=== PATIENT | female | born 1960 | race Caucasian/White ===

== ENCOUNTER 2018-02-22 17:30 | Inpatient (IN) | payer OTHER ==
[2018-02-22] MEDS ORDERED: ACETAMINOPHEN 500 MG TAB PO ONE (17:44)
[2018-02-22] MEDS ORDERED: NS 1,500 ML IV ONE (18:31)
[2018-02-22 18:35] LABS: PLATELET COUNT 208 10^3/uL (150-400)
[2018-02-22] MEDS ORDERED: ceFAZolin 2 GM/DEXTROSE 100 ML IV ONE (18:45)
--- NOTE | 2018-02-22 18:55 | EDPHY ---
H & P Stated Complaint: L nipple swelling redness Time Seen by Provider: 02/22/18 18:02 HPI/ROS: CHIEF COMPLAINT: Left breast infection HISTORY OF PRESENT ILLNESS: 57-year-old female presents with a left breast infection. She had a mastectomy in October 2017 and had an implant placed at that time. In November 2017 she had nipple reconstruction. The nipple became necrotic in the postop period and she has followed up her surgeon. However over the last 10 days, she has developed erythema over the left breast, associated with increasing moderate pain and purulent drainage. Today she developed a fever and feels ill. REVIEW OF SYSTEMS: complete 10 point ROS reviewed and is negative except for the noted elements in the HPI Source: Patient - Personal History Current Tetanus/Diphtheria Vaccine: Unsure Current Tetanus Diphtheria and Acellular Pertussis (TDAP): Unsure - Medical/Surgical History Hx Asthma: No Hx Chronic Respiratory Disease: No Hx Diabetes: No Hx Cardiac Disease: No Hx Renal Disease: No Hx Cirrhosis: No Hx Alcoholism: No Hx HIV/AIDS: No Hx Splenectomy or Spleen Trauma: No Other PMH: breast CA 2004, tonsilectomy, breast reconstruction - Social History Smoking Status: Current some day smoker Alcohol Use: Sober Drug Use: None - Physical Exam Exam: General Appearance: Alert, pleasant, nontoxic-appearing Eyes: Pupils equal and round, no conjunctival pallor or injection ENT, Mouth: Mucous membranes moist Neck: Normal inspection Respiratory: Lungs are clear to auscultation Breast: Diffuse erythema, swelling and tenderness of the left breast, the erythema extends to the right anterior chest wall, necrosis of the nipple, with purulent drainage between the nipple and the remainder of the breast Cardiovascular: Regular tachycardia Gastrointestinal: Abdomen is soft and nontender Neurological: A&O, nonfocal exam Skin: Warm and dry Extremities: Normal inspection, no swelling Psychiatric: Mood and affect normal Constitutional: Initial Vital Signs Temperature (C) 39.2 C H 02/22/18 17:36 Heart Rate 123 H 02/22/18 17:36 Respiratory Rate 16 02/22/18 17:36 Blood Pressure 156/97 H 02/22/18 17:36 O2 Sat (%) 92 02/22/18 17:36 O2 Delivery Mode Room Air Allergies/Adverse Reactions: amoxicillin Allergy (Verified 02/22/18 17:35) Penicillins Allergy (Verified 02/22/18 17:35) Home Medications: Medication Instructions Recorded Aspirin [Aspirin 81mg (*)] 81 mg PO DAILY 02/22/18 Cholecalciferol Vit D3 [Vitamin D3 1,000 units PO DAILY 02/22/18 (*)] Herbals/Supplements -Info Only 1 ea PO DAILY 02/22/18 Letrozole [Femara 2.5 mg (*)] 2.5 mg PO DAILY 02/22/18 Vancomycin [Vancomycin (*)] 1,250 mg IV DAILY vial 02/25/18 levOFLOXACIN [levAQUIN (*)] 750 mg PO HS #10 tab 02/25/18 Medical Decision Making ED Course/Re-evaluation: This pt presents with left breast mastitis/abscess and infection of the implant. She meets SIRS criteria, initial lactate 2.8. c/w severe sepsis. IVF per sepsis protocol initiated. Wound cx obtained. Ancef 2gm IV given after blood cultures obtained. Dr. Gilberto Michael was consulted and saw the pt in the ED. Repeat lactate obtained and is 2.2. The hospitalist service was consulted for admission. The pt was taken directly to the OR by Dr. Michael. BP adequate throughout ED stay. This pt utilized 35 minutes of critical care time exclusive of unbundled procedures. Time spent in serial assessments of pt, ordering/review of labs, medication ordering, discussions with consultants. Differential Diagnosis: includes though not limited to other causes of infection such as pneumonia, cellulitis, pyelo, intraabd infection - Data Points Laboratory Results: Laboratory Results 02/22/18 18:23 02/22/18 18:23 Medications Given: Discontinued Medications Acetaminophen (Tylenol) 1,000 mg PO EDNOW ONE Stop: 02/22/18 17:45 Last Admin: 02/22/18 17:47 Dose: 1,000 mg Acetaminophen (Tylenol) 650 mg PO Q6HRS PRN PRN Reason: Pain, Mild/Fever, Can Take PO Stop: 08/22/18 06:28 Last Admin: 02/23/18 18:23 Dose: 650 mg Bacitracin (Bacitracin Syringe) Confirm Administered Dose 100,000 units IRR .STK -MED ONE Stop: 02/22/18 19:40 Last Admin: 02/22/18 21:12 Dose: Not Given Bupivacaine HCl (Sensorcaine 0.5% Vial) Confirm Administered Dose 30 ml .ROUTE .STK-MED ONE Stop: 02/22/18 20:46 Last Admin: 02/22/18 21:12 Dose: 30 ml Cholecalciferol (Vitamin D) 1,000 units PO DAILY SALO Stop: 08/22/18 08:59 Last Admin: 02/25/18 08:13 Dose: 1,000 units Sodium Chloride (Ns) 1,500 mls @ 3,000 mls/hr 30 ml/kg infuse over 30 min ( 1500 ml) IV EDNOW ONE PRN Reason: Protocol Stop: 02/22/18 19:00 Last Admin: 02/22/18 18:45 Dose: 1,500 mls Cefazolin Sodium/Dextrose (Ancef) 100 mls @ 200 mls/hr IV EDNOW ONE PRN Reason: Protocol Stop: 02/22/18 19:14 Last Admin: 02/22/18 18:50 Dose: 100 mls Lactated Ringer's (Lr) 1,000 mls @ 0 mls/hr IV ONCE ONE PRN Reason: KVO Stop: 02/22/18 19:54 Last Admin: 02/22/18 20:27 Dose: 1,000 mls Cefazolin Sodium/Dextrose (Ancef) 100 mls @ 200 mls/hr IV Q8HRS SALO PRN Reason: Protocol Stop: 03/25/18 05:59 Last Admin: 02/23/18 04:57 Dose: 100 mls Sodium Chloride (Ns) 500 mls @ 0 mls/hr IV ONCE ONE PRN Reason: Wide Open Stop: 02/23/18 07:01 Last Admin: 02/23/18 07:02 Dose: 500 mls Cefepime HCl 2 gm/ Sodium (Chloride) 100 mls @ 200 mls/hr IV Q8H SALO PRN Reason: Protocol Stop: 03/25/18 10:29 Last Admin: 02/25/18 10:28 Dose: 100 mls Vancomycin HCl 750 mg/ (Dextrose) 165 mls @ 165 mls/hr IV Q12H SALO PRN Reason: Protocol Stop: 03/25/18 10:29 Last Admin: 02/25/18 11:20 Dose: 165 mls Sodium Chloride (Ns) 1,000 mls @ 3,000 mls/hr IV ONCE ONE Stop: 02/23/18 10:49 Last Admin: 02/23/18 10:39 Dose: 1,000 mls Letrozole (Femara) 2.5 mg PO DAILY [facility] Stop: 08/22/18 08:59 Last Admin: 02/25/18 08:13 Dose: 2.5 mg Midazolam HCl (Versed) 2 mg IVP ONCALL ONE Stop: 02/22/18 20:15 Last Admin: 02/22/18 20:26 Dose: 2 mg Oxycodone HCl (Oxycodone Ir) 5 - 10 mg PO Q4HRS PRN PRN Reason: PACU, Pain Severe Stop: 02/22/18 21:17 Last Admin: 02/22/18 21:27 Dose: 5 mg Oxycodone HCl (Oxycodone Ir) 5 - 10 mg PO Q4HRS PRN PRN Reason: Pain, Severe Able to Take PO Stop: 03/04/18 21:09 Last Admin: 02/25/18 08:12 Dose: 5 mg Polymyxin B Sulfate (Polymyxin B Syringe) Confirm Administered Dose 1,000,000 unit IRR .STK-MED ONE Stop: 02/22/18 19:40 Last Admin: 02/22/18 21:12 Dose: Not Given Potassium Chloride (Klor-Con) 40 meq PO ONCE ONE Stop: 02/24/18 10:14 Last Admin: 02/24/18 10:49 Dose: 40 meq Senna/Docusate Sodium (Senokot-S) 1 - 2 tab PO BID SALO PRN Reason: Protocol Stop: 08/24/18 11:29 Last Admin: 02/25/18 12:16 Dose: 2 tab Vancomycin HCl (Vancomycin Hcl) Confirm Administered Dose 1 gm .ROUTE .STK-MED ONE Stop: 02/22/18 19:40 Last Admin: 02/22/18 21:13 Dose: Not Given Departure - Departure Disposition: [facility] Acute Clinical Impression: Infection of breast implant Qualifiers: Encounter type: initial encounter Qualified Code(s): T85.79XA - Infection and inflammatory reaction due to other internal prosthetic devices, implants and grafts, initial encounter Condition: Serious
--- NOTE | 2018-02-22 19:31 | PDGENHP ---
History and Physical - Chief Complaint L breast infection - History of Present Illness Otherwise health 57yo F from [place] presents with acute onset L breast pain and drainage. Briefly, patient is s/p mastectomy c radiation and recon for L breast cancer. Most treatment took place in spring. Has had nipple healing issues since the operation and has had revision x1. Is in town visiting family and noticed that the chest wall has been somewhat erythematous for about the last week or so. Initially blamed this on heating pads she was using to augment blood flow. Today, hasnt felt well all day and has noticed drainage from the area which prompted her presentation here. She denies fevers at home, but endorses chills. Pain is located over the majority of the L breast is 7/10 in intensity and nonradiating and is described as burning. History Information - Allergies/Home Medication List Allergies/Adverse Reactions: amoxicillin Allergy (Verified 02/22/18 17:35) Penicillins Allergy (Verified 02/22/18 17:35) Home Medications: Aspirin [Aspirin 81mg (*)] 81 mg PO DAILY 02/22/18 [Last Taken Unknown] Cholecalciferol Vit D3 [Vitamin D3 (*)] 1,000 units PO DAILY 02/22/18 [Last Taken Unknown] Herbals/Supplements -Info Only 1 ea PO DAILY 02/22/18 [Last Taken Unknown] Letrozole [Femara 2.5 mg (*)] 2.5 mg PO DAILY 02/22/18 [Last Taken 02/22/18] I have personally reviewed and updated: family history, medical history, social history, surgical history Past Medical History: breast cancer - Surgical History Additional surgical history: L mastectomy, tissue expanders and implant c nipple revision - Family History Positive for: non-pertinent - Social History Smoking Status: Current some day smoker Alcohol Use: Sober Drug Use: None Additional social history: in town from [place] visiting family Review of Systems Review of Systems: ROS: 10pt was reviewed & negative except for what was stated in HPI & below Physical Exam Physical Exam: Temp Pulse Resp BP Pulse Ox 98.8 C H 97 18 134/81 H 97 02/22/18 18:44 02/22/18 19:15 02/22/18 19:15 02/22/18 19:15 02/22/18 19:15 Constitutional: appears nourished, not in pain, uncomfortable Eyes: PERRL, anicteric sclera, EOMI Ears, Nose, Mouth, Throat: moist mucous membranes, hearing normal, ears appear normal, no oral mucosal ulcers Cardiovascular: regular rate and rhythym, no murmur, rub, or gallop, No edema Respiratory: no respiratory distress, no rales or rhonchi, clear to auscultation Gastrointestinal: normoactive bowel sounds, soft, non-tender abdomen, no palpable masses Genitourinary: no bladder fullness, no bladder tenderness Skin: other (L breast: central portion adjacent to nipple is open and tracks likely to implant. Nipple is necrotic. Breast is indurated, erythematous and very tender. ), No mottled Musculoskeletal: full muscle strength, no muscle tenderness, normal joint ROM, no joint effusions Neurologic: AAOx3, sensation intact bilaterally, No weakness, No numbness Psychiatric: interacting appropriately, not anxious, not encephalopathic, thought process linear Lymph, Heme, Immunologic: no cervical LAD, no supraclavicular LAD Lab Data & Imaging Review 02/22/18 18:23 02/22/18 18: WBC 6.80 10^3/uL (3.80-9.50) 02/22/18 18: RBC 3.39 10^6/uL (4.18-5.33) L 02/22/18 18: Hgb 11.9 g/dL (12.6-16.3) L 02/22/18 18: Hct 33.3 % (38.0-47.0) L 02/22/18 18: MCV 98.2 fL (81.5-99.8) 02/22/18 18: MCH 35.1 pg (27.9-34.1) H 02/22/18 18: MCHC 35.7 g/dL (32.4-36.7) 02/22/18 18: RDW 13.0 % (11.5-15.2) 02/22/18 18: Plt Count 208 10^3/uL (150-400) 02/22/18 18: MPV 9.3 fL (8.7-11.7) 02/22/18 18: Neut % (Auto) 75.7 % (39.3-74.2) H 02/22/18 18:23 Lymph % (Auto) 12.2 % (15.0-45.0) L 02/22/18 18:23 [place] % (Auto) 11.5 % (4.5-13.0) 02/22/18 18:23 Eos % (Auto) 0.0 % (0.6-7.6) L 02/22/18 18:23 Baso % (Auto) 0.3 % (0.3-1.7) 02/22/18 18: Nucleat RBC Rel Count 0.0 % (0.0-0.2) 02/22/18 18: Absolute Neuts (auto) 5.15 10^3/uL (1.70-6.50) 02/22/18 18: Absolute Lymphs (auto) 0.83 10^3/uL (1.00-3.00) L 02/22/18 18: Absolute Monos (auto) 0.78 10^3/uL (0.30-0.80) 02/22/18 18: Absolute Eos (auto) 0.00 10^3/uL (0.03-0.40) L 02/22/18 18:23 Absolute Basos (auto) 0.02 10^3/uL (0.02-0.10) 02/22/18 18: Absolute Nucleated RBC 0.00 10^3/uL (0-0.01) 02/22/18 18: Immature Gran % 0.3 % (0.0-1.1) 02/22/18 18: Immature Gran # 0.02 10^3/uL (0.00-0.10) 02/22/18 18:23 VBG Lactic Acid 2.8 mmol/L (0.7-2.1) H 02/22/18 18:20 Sodium 133 mEq/L (135-145) L 02/22/18 18:23 Potassium 3.7 mEq/L (3.5-5.2) 02/22/18 18:23 Chloride 100 mEq/L (97-110) 02/22/18 18:23 Carbon Dioxide 21 mEq/l (22-31) L 02/22/18 18: Anion Gap 12 mEq/L (6-14) 02/22/18 18:23 BUN 7 mg/dL (7-23) 02/22/18 18:23 Creatinine 0.6 mg/dL (0.6-1.0) 02/22/18 18:23 Estimated GFR > 60 02/22/18 18:23 Glucose 104 mg/dL (70-100) H 02/22/18 18:23 Calcium 8.9 mg/dL (8.5-10.4) 02/22/18 18:23 Chest X-Ray results: no infiltrate Assessment & Plan Assessment: 57yo F c L breast infection c implant Plan: discussed with the patient that the treatment for this is source control. This includes removal of the implant. - plan for OR for washout and explant of silicone implant - BS abx - will ultimately need revision, will likely have this done in [place] once source is washed.
[2018-02-22] MEDS ORDERED: POLYMYXIN B SULFATE 500,000 UNIT/10 ML SYR IRR ONE (19:39)
[2018-02-22] MEDS ORDERED: VANCOMYCIN 1 GM VIAL ONE (19:39)
[2018-02-22] MEDS ORDERED: BACITRACIN 50,000 UNITS/10 ML SYR IRR ONE (19:39)
[2018-02-22] MEDS ORDERED: LR 1,000 ML IV ONE (19:53)
--- NOTE | 2018-02-22 19:56 | PDGENHP ---
History and Physical History and Physical: Chief complaint: [] History of present illness: [] Past medical history: [] Past surgical history: [] Medications: [] Allergies: [] Social history: [] Family history: [] Review of systems: 10 point review of systems was conducted and is negative except per HPI Physical exam: Vitals: Reviewed Labs: [] Other Data: [] Impression and plan: []
[2018-02-22] MEDS ORDERED: MIDAZOLAM 2 MG/2 ML VIAL IVP ONE (20:14)
[2018-02-22] MEDS ORDERED: PROMETHAZINE HCL 25 MG/ML INJ IVP PRN (20:16)
[2018-02-22] MEDS ORDERED: DEXAMETHASONE 4 MG/ML VIAL IVP PRN (20:16)
[2018-02-22] MEDS ORDERED: oxyCODONE IR 5 MG TAB PO PRN (20:16)
[2018-02-22] MEDS ORDERED: ACETAMINOPHEN 500 MG TAB PO PRN (20:16)
[2018-02-22] MEDS ORDERED: NALOXONE HCL 0.4 MG/ML INJ IVP PRN (20:16)
[2018-02-22] MEDS ORDERED: ONDANSETRON 4 MG/2 ML VIAL IVP PRN (20:16)
[2018-02-22] MEDS ORDERED: fentaNYL 100 MCG/2 ML INJ IVP PRN (20:16)
[2018-02-22] MEDS ORDERED: LR 500 ML IV PRN (20:16)
--- NOTE | 2018-02-22 20:16 | PDANEPAE ---
ANE Past Medical History - Pulmonary History Hx Oxygen in Use at Home: No - Endocrine History Hx Diabetes: No Obesity: no Endocrine History Comment: Graves disease 30 years ago--"it burned itself out". ANE Review of Systems Review of Systems: ANE Patient History - Allergies Allergies/Adverse Reactions: amoxicillin Allergy (Verified 02/22/18 17:35) Penicillins Allergy (Verified 02/22/18 17:35) - Home Medications Home Medications: Aspirin [Aspirin 81mg (*)] 81 mg PO DAILY 02/22/18 [Last Taken Unknown] Cholecalciferol Vit D3 [Vitamin D3 (*)] 1,000 units PO DAILY 02/22/18 [Last Taken Unknown] Herbals/Supplements -Info Only 1 ea PO DAILY 02/22/18 [Last Taken Unknown] Letrozole [Femara 2.5 mg (*)] 2.5 mg PO DAILY 02/22/18 [Last Taken 02/22/18] - NPO status NPO Since - Liquids (Date): 02/22/18 NPO Since - Liquids (Time): 18:35 NPO Since - Solids (Date): 02/22/18 NPO Since - Solids (Time): 11:30 - Anes Hx Anes Hx: no prior problems - Smoking Hx Smoking Status: Current some day smoker - Alcohol Use Alcohol Use: Sober ANE Labs/Vital Signs - Labs Result Diagrams: 02/22/18 18:23 02/22/18 18:23 - Vital Signs Blood Pressure: 119/84 Heart Rate: 91 Respiratory Rate: 18 O2 Sat (%): 95 Height: 162.56 cm Weight: 50.349 kg ANE Physical Exam - Airway Neck exam: FROM Mallampati Score: Class 2 Mouth exam: normal dental/mouth exam - Pulmonary Pulmonary: no respiratory distress, no rales or rhonchi, clear to auscultation - Cardiovascular Cardiovascular: regular rate and rhythym, no murmur, rub, or gallop - ASA Status ASA Status: II ANE Anesthesia Plan Anesthesia Plan: GA w LMA
[2018-02-22] MEDS ORDERED: ONDANSETRON 4 MG/2 ML VIAL ONE (20:18)
[2018-02-22] MEDS ORDERED: fentaNYL 100 MCG/2 ML INJ ONE (20:18)
[2018-02-22] MEDS ORDERED: PROPOFOL 200 MG/20 ML VIAL ONE (20:18)
[2018-02-22] MEDS ORDERED: MIDAZOLAM 2 MG/2 ML VIAL ONE (20:19)
[2018-02-22] MEDS ORDERED: BUPIVACAINE 0.5% 30 ML SDV ONE (20:45)
[2018-02-22] MEDS ORDERED: HYDROmorphONE/DILAUDID 1 MG/ML INJ IVP PRN (21:10)
--- NOTE | 2018-02-22 21:10 | POSTOPPROG ---
Post Op Note Date of Operation: 02/22/18 Surgeon: Gilberto Michael Anesthesiologist: Krysta Anesthesia: GET(General Endotracheal) Pre-op Diagnosis: L breast abscess Post-op Diagnosis: same Procedure: L breast I&D c implant removal and washout Findings: purulent, foul smelling fluid. Implant clearly exposed Inf/Abcess present in the surg proc area at time of surgery?: Yes Depth: Deep Incisional (Fascial) EBL: Minimal Total fluids administered: 3L NS washout Specimen(s): cultures implant to path
--- NOTE | 2018-02-22 21:11 | POSTANESTH ---
Post Anesthetic Evaluation Cardiovascular Status: Similar to Pre-Op Cond (A little tachycardic (105), likely due to dehydration and fever.) Respiratory Status: Normal, Stable, Similar to Pre-op Cond. Level of Consciousness/Mental Status: Can Participate in Eval, Mildly Sleepy, Arousable Pain Control: Adequate, Prn Tx Ordered Nausea/Vomiting Control: Adequate, Prn Tx Ordered Complications Possibly Related to Anesthesia: None Noted
[2018-02-22] MEDS ORDERED: oxyCODONE IR 5 MG TAB ONE (21:26)
[2018-02-23] MEDS: oxyCODONE IR 5 MG TAB PO PRN (00:03)
--- NOTE | 2018-02-23 00:48 | PDGENHP ---
History and Physical - Chief Complaint L breast redness, swelling - History of Present Illness 57 yo F w/ hx of breast CA presents with L breast redness and swelling. She underwent L mastectomy and reconstruction in October of 2017 for breast CA. Her recovery from this has been complicated. The nipple became necrotic and never fully healed. Over the last few days she has noticed redness over the L breast associated with increasing pain and purulent drainage. On the day of admission she developed fevers so she came in for evaluation. In the ED she was noted to be febrile and tachycardic with an elevated lactate. She was taken to the OR by surgery for an I&D with findings consistent with infection per the brief post-operative note. I evaluated patient in the post-op setting and she is doing quite well. Her pain is well controlled with oxycodone and she denies other symptoms at this time. Case discussed with Dr. Lazo; records reviewed and summarized above. History Information - Allergies/Home Medication List Allergies/Adverse Reactions: amoxicillin Allergy (Verified 02/22/18 17:35) Penicillins Allergy (Verified 02/22/18 17:35) Home Medications: Aspirin [Aspirin 81mg (*)] 81 mg PO DAILY 02/22/18 [Last Taken Unknown] Cholecalciferol Vit D3 [Vitamin D3 (*)] 1,000 units PO DAILY 02/22/18 [Last Taken Unknown] Herbals/Supplements -Info Only 1 ea PO DAILY 02/22/18 [Last Taken Unknown] Letrozole [Femara 2.5 mg (*)] 2.5 mg PO DAILY 02/22/18 [Last Taken 02/22/18] I have personally reviewed and updated: family history, medical history Past Medical History: breast cancer - Past Medical History cancer - Surgical History Additional surgical history: L mastectomy, tissue expanders and implant c nipple revision - Family History Positive for: non-pertinent - Social History Smoking Status: Current some day smoker Alcohol Use: Sober Drug Use: None Additional social history: in town from [place] visiting family Review of Systems Review of Systems: ROS: 10pt was reviewed & negative except for what was stated in HPI & below Physical Exam Physical Exam: Temp Pulse Resp BP Pulse Ox 37.0 C 98 16 132/79 H 95 02/23/18 00:00 02/23/18 00:00 02/23/18 00:00 02/23/18 00:00 02/23/18 00:00 O2 (L/minute) 1 Constitutional: no apparent distress, uncomfortable Eyes: PERRL, EOMI Ears, Nose, Mouth, Throat: moist mucous membranes, no oral mucosal ulcers Cardiovascular: regular rate and rhythym, systolic murmur Respiratory: no respiratory distress, clear to auscultation Gastrointestinal: normoactive bowel sounds, soft, non-tender abdomen Skin: warm, other (L breast bandage c/d/i) Musculoskeletal: full muscle strength, no muscle tenderness Neurologic: AAOx3, CN II-XII Intact Psychiatric: interacting appropriately, not anxious Lab Data & Imaging Review 02/22/18 18:23 02/22/18 18: WBC 6.80 10^3/uL (3.80-9.50) 02/22/18 18: RBC 3.39 10^6/uL (4.18-5.33) L 02/22/18 18: Hgb 11.9 g/dL (12.6-16.3) L 02/22/18: Hct 33.3 % (38.0-47.0) L 02/22/18 18: MCV 98.2 fL (81.5-99.8) 02/22/18 18: MCH 35.1 pg (27.9-34.1) H 02/22/18: MCHC 35.7 g/dL (32.4-36.7) 02/22/18 18: RDW 13.0 % (11.5-15.2) 02/22/18: Plt Count 208 10^3/uL (150-400) 02/22/18 18: MPV 9.3 fL (8.7-11.7) 02/22/18 18: Neut % (Auto) 75.7 % (39.3-74.2) H 02/22/18: Lymph % (Auto) 12.2 % (15.0-45.0) L 02/22/18 18: [place] % (Auto) 11.5 % (4.5-13.0) 02/22/18 18: Eos % (Auto) 0.0 % (0.6-7.6) L 02/22/18 18:23 Baso % (Auto) 0.3 % (0.3-1.7) 02/22/18 18:23 Nucleat RBC Rel Count 0.0 % (0.0-0.2) 02/22/18 18: Absolute Neuts (auto) 5.15 10^3/uL (1.70-6.50) 02/22/18 18: Absolute Lymphs (auto) 0.83 10^3/uL (1.00-3.00) L 02/22/18 18: Absolute Monos (auto) 0.78 10^3/uL (0.30-0.80) 02/22/18 18: Absolute Eos (auto) 0.00 10^3/uL (0.03-0.40) L 02/22/18 18: Absolute Basos (auto) 0.02 10^3/uL (0.02-0.10) 02/22/18 18: Absolute Nucleated RBC 0.00 10^3/uL (0-0.01) 02/22/18 18: Immature Gran % 0.3 % (0.0-1.1) 02/22/18 18: Immature Gran # 0.02 10^3/uL (0.00-0.10) 02/22/18 18: VBG Lactic Acid 1.2 mmol/L (0.7-2.1) 02/22/18 21:48 Sodium 133 mEq/L (135-145) L 02/22/18 18: Potassium 3.7 mEq/L (3.5-5.2) 02/22/18 18: Chloride 100 mEq/L (97-110) 02/22/18 18:23 Carbon Dioxide 21 mEq/l (22-31) L 02/22/18 18:23 Anion Gap 12 mEq/L (6-14) 02/22/18 18:23 BUN 7 mg/dL (7-23) 02/22/18 18: Creatinine 0.6 mg/dL (0.6-1.0) 02/22/18 18:23 Estimated GFR > 60 02/22/18 18: Glucose 104 mg/dL (70-100) H 02/22/18 18:23 Calcium 8.9 mg/dL (8.5-10.4) 02/22/18 18:23 Imaging Review: Imaging Impressions Chest X-Ray 02/22/18 18:02 Impression: Question mild bronchitis. No other findings for acute cardiopulmonary abnormality. Assessment & Plan Assessment: 57 yo F w/ hx of L breast CA and mastectomy/reconstruction presents with L breast infection. Plan: 1. Sepsis 2/2 L breast cellulitis - Sepsis per fever and tachycardia; lactate elevated on presentation. Complicated by presence of silicone implant; now s/p washout in OR and removal of implant per general surgery. - Cefazolin 2g IV q8h - Blood and tissue cultures pending - Oxycodone PRN for pain - Will need reconstruction but will likely return home to [place] for this 2. Breast CA - With mastectomy and reconstruction in October of 2017. - Continue Letrozole daily 3. Hyponatremia - Mild, suspect secondary to infection and sepsis. - S/p fluid bolus in ED - Repeat BMP in the AM Diet - Regular Code - Full Ppx - SCDs Dispo - Admit under observation status
[2018-02-23] MEDS ORDERED: ceFAZolin 2 GM/DEXTROSE 100 ML IV SCH (06:00)
[2018-02-23] MEDS ORDERED: NS 500 ML IV ONE (06:28)
[2018-02-23] MEDS: ACETAMINOPHEN 325 MG TAB PO PRN ×2 (06:51→18:23)
[2018-02-23] MEDS ORDERED: NS BOLUS 500 ML (Wide open) IV ONE (07:00)
--- NOTE | 2018-02-23 07:11 | GOP ---
DATE OF OPERATION: 02/22/2018 SURGEON: Gilberto Michael MD BALLING MACHINE OPERATOR: None. ANESTHESIA: General endotracheal. ANESTHESIOLOGIST: Dr. Jama Chaparro PREOPERATIVE DIAGNOSIS: Left breast abscess. POSTOPERATIVE DIAGNOSIS: Left breast abscess. PROCEDURE PERFORMED: Incision and drainage of left breast abscess with removal of breast implant. FINDINGS: Implant was clearly exposed where the necrotic nipple had been. Purulent fluid surrounded it in the entire cavity. Implant successfully removed. Cavity washed out. SPECIMENS: Cultures and implant to pathology. ESTIMATED BLOOD LOSS: 5 cc. DESCRIPTION OF PROCEDURE: The patient was greeted in the preoperative suite. Once again, risks, carla efits, and alternatives were discussed. Consent was signed. She was then brought back to the operat aung suite, placed on the OR table in supine position. After all anesthesia machines, including SCDs were on and functioning, a [employer] time-out was performed. After successful induct ion of general anesthesia, the left chest was prepped and draped in the typical sterile fashion. I commenced the procedure basically by digitizing the area where the necrotic nipple had pulled away from the skin. The underlying implant was directly visible at that site and digitalizing the area pr oduced foul smelling purulent fluid. The remainder of the necrotic nipple was removed sharply throug h her previous inferolateral incision where the implant was originally placed. I opened this up che ply to the extent of the incision. Just deep to this, the implant was encountered. It was grasped w ith an Allis clamp and removed with gentle pressure. It was passed off. Once the implant was remove d, the cavity was interrogated. No other fluid pockets or abscesses were encountered. It was then i rrigated with 3 liters sterile saline. After irrigation, I infiltrated the area with Marcaine plain. I saw no other significant pathology. The capsule through my incision was then closed first with interrupted Vicryl. The skin was then cl osed with ann marie. The central portion, which was open previously was left open and the area was suc cessfully packed with gauze. Pressure dressing was placed. The patient was then extubated in the op erative suite and taken to the PACU in satisfactory condition. DRAINS: None. COUNTS: All counts were reported as correct x2. /[id number]/MODL
[2018-02-23] MEDS ORDERED: Herbals/Supplements -Info Only PO SCH (09:00)
[2018-02-23] MEDS: LETROZOLE 2.5 MG TAB PO SCH (09:07)
[2018-02-23] MEDS: CHOLECALCIFEROL VIT D3 1,000 UNITS TAB PO SCH (09:07)
[2018-02-23] MEDS ORDERED: NS 1,000 ML IV ONE (10:30)
[2018-02-23] MEDS ORDERED: ALTEPLASE 2 MG VIAL IVP PRN (10:31)
--- NOTE | 2018-02-23 10:44 | HOSPPROG ---
Hospitalist Progress Note Assessment/Plan: # severe sepsis d/t soft tissue infection (lactic acidosis, hypotension) - bolus another 1L NS - place PICC - transfer to ICU if BP does not improve # breast cellulitis - gram stain with GPC clusters and chains, GNR's - change abx to vanc/cefepime - ID consult as this is polymicrobial # pcn allergy - rash, no anaphylaxis # breast cancer s/p mastectomy, XRT, reconstruction (10/2017) # hyponatremia - follow tomorrow # anemia - suspect chronic Subjective: very dizzy with ambulation Objective: Vital Signs Temp Pulse Resp BP Pulse Ox 36.9 C 82 16 93/60 L 97 02/23/18 08:41 02/23/18 09:05 02/23/18 09:05 02/23/18 09:05 02/23/18 08:41 Microbiology 02/22/18 20:48 Gram Stain - Final Breast - Eswab 02/22/18 20:48 Mycobacterial Smear (BETZAIDA) - Final Breast - Eswab Mycobacterial Culture - Final 02/22/18 18:56 Gram Stain - Final Breast - Swab Laboratory Results 02/23/18 05:15 02/23/18 05:15 02/22/18 02/23/18 02/24/18 05:59 05:59 05:59 Intake Total 1540 Output Total 520 Balance 1020 35 mins cc time managing severe sepsis - Physical Exam Constitutional: no apparent distress, appears nourished Cardiovascular: regular rate and rhythym, no murmur, rub, or gallop Respiratory: no respiratory distress, no rales or rhonchi, clear to auscultation Gastrointestinal: normoactive bowel sounds, soft, non-tender abdomen, no palpable masses ICD10 Worksheet Patient Problems: Problems Problem Status Onset Cellulitis Acute
[2018-02-23] MEDS: VANCOMYCIN 750 MG in D5W 150 ML IV SCH ×2 (11:32→23:06)
--- NOTE | 2018-02-23 11:58 | GCON ---
INFECTIOUS DISEASE CONSULTATION DATE OF CONSULTATION: 02/23/2018 REFERRING PHYSICIAN: Steve Alvarado MD REASON FOR CONSULTATION: Sepsis due to left-sided breast infection. HISTORY OF PRESENT ILLNESS: The patient is a 57-year-old female with a past medical history of breas t cancer, status post mastectomy with reconstruction and nipple revision, who I am asked to see in co nsultation for sepsis associated with left breast infection. The patient describes having left maste ctomy and reconstruction in October of 2017 for breast cancer. She notes that she also had radiation therapy. The patient subsequently had nipple revision and developed difficulty with nipple healing a nd presence of necrosis. Over the last 10 days, patient has noted increasing induration, tenderness and erythema over the left breast. This subsequently became associated with malodorous purulent drai nage. The patient also had malaise and decreased appetite. She did not note fever or chills. Upon presentation [facility], she had a temperature maximum of 39.2 with associated mild increase in lactate and tachycardia. She was taken to the operating room yesterday where she wa s noted to have a necrotic nipple with implant exposure. The patient had the necrotic nipple removed , and her implant also was removed. Purulent fluid was noted to be present in the entire implant cav ity. No other abscesses were noted. The patient was being treated with cefazolin postoperatively. Gram stain of the patient's operative specimen is polymicrobial with presence of GPCs in clusters, GP Cs in chains, and gram-negative rods. Based on these findings, her antibiotics have been modified ea rlier today to include vancomycin and cefepime. The patient had some transient hypotension earlier t nupur which appears to be responding to IV fluid. Lactic acid decreased yesterday to 1.2. The patien t does not note any other areas of skin and soft tissue infection. No history of MRSA infection. No recent antibiotic use. No history of nausea, vomiting or diarrhea. Given the above findings, I am now asked to assist in her ongoing management. PAST MEDICAL HISTORY: Breast cancer, Graves disease. PAST SURGICAL HISTORY: Left-sided mastectomy with reconstruction including implant placement and nip ple revision, tonsillectomy. CURRENT MEDICATIONS: Vancomycin 750 mg IV q.12 hours, cefepime 2 g IV q.8 hours, vitamin D 1000 unit s p.o. daily, letrozole 2.5 mg p.o. daily, Oxy IR as needed. ALLERGIES: Penicillin associated with rash (no hives). SOCIAL HISTORY: Patient smokes several cigarettes daily or every few days. The patient notes she dr inks wine with dinner and has cocktails daily. No drug use. No pets. Typically lives near [place]. FAMILY HISTORY: Graves disease, breast cancer. REVIEW OF SYSTEMS: Outside that noted in HPI, the remainder of a 10-system review is unremarkable. PHYSICAL EXAMINATION: VITAL SIGNS: Temperature maximum 39.2, temperature current 36.7, heart rate 8 2, respiratory rate 18, blood pressure 101/70, oxygen saturation 99% on 1.5 L. GENERAL: Patient is a thin female in no acute distress. She appears nontoxic. HEENT: There is no scleral icterus, conj unctival injection, or conjunctival petechiae. The oropharynx is clear without lesions. Dentition i n fair repair. There is no nasal discharge. There is no tenderness over the frontal maxillary or ma stoid area. Mucous membranes are moist. NECK: Supple without palpable lymphadenopathy or thyromega ly. CHEST: Clear to auscultation bilaterally without adventitious sounds. Respiratory effort is no rmal. CARDIOVASCULAR: Regular rate and rhythm without murmurs, gallops, or rubs. ABDOMEN: Soft, n ontender, nondistended. Bowel sounds are present. BREASTS: The left breast is dressed postoperativ lex. No erythema extending past dressing margins. MUSCULOSKELETAL: No cyanosis, clubbing, or edema . SKIN: No rashes present. No stigmata of endocarditis. Skin is warm and dry to touch. NEUROLOGI C: Patient is alert and interacts appropriately with examiner. Cranial nerves 2-[address] Sensation is grossly intact. Muscle tone and bulk are normal. LYMPHATICS: No cervical or supra clavicular nodes. LABORATORY DATA: White blood cell count 6.7, hematocrit 31.9, platelets 186; no differential perform ed today. Serum creatinine 0.6, bicarbonate 23, lactic acid 1.2. Blood cultures x2 sets pending. G ingrid stain from the operative specimen shows 4+ white blood cells, 4+ GPCs in chains, 3+ gram-negative rods, 2+ GPCs in clusters. Chest x-ray shows no evidence of pneumonia. IMPRESSION: Sepsis due to left breast infection status post incision and drainage with implant remov al and nipple excision: Gram stain is polymicrobial, which is compatible with presence of necrotic n ipple. Gram-positive cocci in clusters are consistent with Staphylococcus aureus. The patient curre ntly receiving vancomycin and cefepime, which is reasonable coverage based on Gram stain findings. W ill hold off on addition of anaerobic coverage currently unless anaerobic quinton isolated. We will co ntinue to assess breast findings over time. Will follow blood cultures as available. RECOMMENDATIONS: 1. Agree with empiric vancomycin and cefepime. 2. Side effects of vancomycin and cefepime reviewed with patient. 3. Follow up cultures with modification of antibiotics accordingly. 4. Follow up blood cultures as available. 5. Follow clinical response to above measures over time. Thank you for this consultation. We will continue to follow the patient with you. /[id number]/MODL
--- NOTE | 2018-02-23 12:29 | SOAPPROG ---
SOAP Progress Note Assessment/Plan: Assessment: 57yo F s/p L breast I&D c implant removal - febrile overnight, BP improving - skin looks better, dressing semi-saturated. Remove tomorrow. - OK to shower, will need to cover area where nipple was as there is no tissue here - IV abx per ID/IM - no dietary, or lifting restrictions. will need f/u with plastics in [place] for recon once infection has resolved. Plan: 02/23/18 12:27 Subjective: feels better Objective: Vital Signs Temp Pulse Resp BP Pulse Ox 36.3 C 86 18 116/74 99 02/23/18 11:34 02/23/18 11:34 02/23/18 11:34 02/23/18 11:34 02/23/18 11:34 Microbiology 02/22/18 20:48 Gram Stain - Final Breast - Eswab 02/22/18 20:48 Mycobacterial Smear (BETZAIDA) - Final Breast - Eswab Mycobacterial Culture - Final 02/22/18 18:56 Gram Stain - Final Breast - Swab Laboratory Results 02/23/18 05:15 02/23/18 05:15 02/22/18 02/23/18 02/24/18 05:59 05:59 05:59 Intake Total 1540 Output Total 520 400 Balance 1020 -400 ICD10 Worksheet Patient Problems: Problems Problem Status Onset Cellulitis Acute
[2018-02-23] MEDS: CEFEPIME HCL 2 GM in NS 100 ML IV SCH ×2 (12:58→17:40)
--- NOTE | 2018-02-23 13:46 | PDMN ---
Medical Necessity Medical necessity: Change to inpt as of 02/23/18 @ 10:46 as pt meets inpt criteria per MD order and MCG M-160, Sepsis and Other Febrile Illness, without Focal Infection and M-70, Cellulitis. 57 y/o w/hx breast cancer/mastectomy and reconstruction October 2017 w/complicated recovery, presented w/increasing pain and redness to L breast, admitted w/L breast cellulitis and sepsis, required I& D w/implant removal and washout upon admission. Upgraded to inpt for severe sepsis d/t L breast infection as evidenced by lactic acidosis, fever- 101 this AM, and hypotension w/BP this AM 85/53. ID consult, surg following, IVF, IV ABX' s, pain management. Est LOS>2MN for ongoing eval/management of above.
[2018-02-24] MEDS: CEFEPIME HCL 2 GM in NS 100 ML IV SCH ×3 (02:04→18:06)
[2018-02-24 05:45] LABS: PLATELET COUNT 187 10^3/uL (150-400)
[2018-02-24] MEDS: CHOLECALCIFEROL VIT D3 1,000 UNITS TAB PO SCH (08:24)
[2018-02-24] MEDS: LETROZOLE 2.5 MG TAB PO SCH (09:27)
--- NOTE | 2018-02-24 10:12 | HOSPPROG ---
Hospitalist Progress Note Assessment/Plan: # severe sepsis d/t soft tissue infection (lactic acidosis, hypotension) - resolved today # breast cellulitis s/p debridement - cont vanc/cefepime; plan for longer term abx still pending # pcn allergy - rash, no anaphylaxis # breast cancer s/p mastectomy, XRT, reconstruction (10/2017) # hyponatremia - follow tomorrow # anemia - suspect chronic Subjective: not dizzy today; tolerated PICC ok Objective: Vital Signs Temp Pulse Resp BP Pulse Ox 37.3 C 91 16 122/72 H 91 L 02/24/18 07:31 02/24/18 07:31 02/24/18 07:31 02/24/18 07:31 02/24/18 07:31 Microbiology 02/22/18 18:56 Gram Stain - Final Breast - Swab 02/22/18 20:48 Mycobacterial Smear (BETZAIDA) - Final Breast - Eswab Mycobacterial Culture - Final 02/22/18 20:48 Gram Stain - Final Breast - Eswab Laboratory Results 02/24/18 05:25 02/24/18 05:25 02/23/18 02/24/18 02/25/18 05:59 05:59 05:59 Intake Total 1540 900 Output Total 520 1003 Balance 1020 -103 - Physical Exam Constitutional: no apparent distress, appears nourished Cardiovascular: regular rate and rhythym, no murmur, rub, or gallop Respiratory: no respiratory distress, no rales or rhonchi, clear to auscultation Gastrointestinal: normoactive bowel sounds, soft, non-tender abdomen, no palpable masses ICD10 Worksheet Patient Problems: Problems Problem Status Onset Cellulitis Acute
[2018-02-24] MEDS ORDERED: POTASSIUM CL 20 MEQ TAB PO ONE (10:13)
[2018-02-24] MEDS: VANCOMYCIN 750 MG in D5W 150 ML IV SCH ×2 (11:56→22:31)
--- NOTE | 2018-02-24 14:10 | ASMTCMCOM ---
CM Note CM Note Notes: Pt lives independently with in [place] and works for a [employer] agency. Pt is visiting [place] and presented to ED with breast implant infection after breast cancer mastectomy and reconstruction in 2017. No therapies ordered. Anticipate pt will discharge independently, though pt may need IV abx upon discharge. PICC line placed yesterday. CM to follow. D/C plan: TBD Date Signed: 02/24/2018 02:10 PM Electronically Signed By:Yoon Fernandez
--- NOTE | 2018-02-24 14:54 | SOAPPROG ---
SOAP Progress Note Assessment/Plan: Assessment: FOLLOW-UP NECROTIC NIPPLE EXCISION WITH REMOVAL OF IMPLANT WOUND IS CLEAN BUT MILDLY ERYTHEMATOUS WHICH MAY BE CHRONIC FROM HER RADIATION THERAPY DRESSING CHANGE TODAY WITH THE WOUND 0 PACKED WITH IODOFORM GAUZE Plan: HOME WHEN OKAYED BY INFECTIOUS DISEASE 02/24/18 14:53 Objective: Vital Signs Temp Pulse Resp BP Pulse Ox 36.8 C 98 14 124/77 H 92 02/24/18 11:38 02/24/18 11:38 02/24/18 11:38 02/24/18 11:38 02/24/18 11:38 Microbiology 02/22/18 20:48 Gram Stain - Final Breast - Eswab 02/22/18 18:56 Gram Stain - Final Breast - Swab 02/22/18 20:48 Mycobacterial Smear (BETZAIDA) - Final Breast - Eswab Mycobacterial Culture - Final Laboratory Results 02/24/18 05:25 02/24/18 05:25 02/23/18 02/24/18 02/25/18 05:59 05:59 05:59 Intake Total 1540 900 Output Total 520 1003 Balance 1020 -103 ICD10 Worksheet Patient Problems: Problems Problem Status Onset Cellulitis Acute
--- NOTE | 2018-02-24 16:53 | PCMIDPN ---
Assessment/Plan: Assessment/Plan: * Left breast infection post reconstruction status post incision and drainage/ resection of necrotic nipple/removal of implant: Culture showing growth of Enterococcus faecalis and lactose fermenting gram-negative lo. Await susceptibility on enterococcal isolate in formal identification of gram- negative lo. Will continue vancomycin and cefepime in interim. Continue to follow clinical course postoperatively and with antibiotic therapy. Directed treatment of Enterococcus may be complicated in the setting of penicillin allergy. Decision regarding oral antibiotic therapy versus IV antibiotic therapy will be dependent on further clinical improvement and susceptibility profiles of isolated organisms. 02/24/18 16:50 Subjective: Patient complains of pain at lower margin of left breast. Objective: Vital Signs Temp Pulse Resp BP Pulse Ox 36.9 C 98 16 135/89 H 94 02/24/18 15:04 02/24/18 15:04 02/24/18 15:04 02/24/18 15:04 02/24/18 15:04 Microbiology 02/22/18 20:48 Mycobacterial Smear (BETZAIDA) - Final Breast - Eswab Mycobacterial Culture - Final 02/22/18 20:48 Gram Stain - Final Breast - Eswab 02/22/18 18:56 Gram Stain - Final Breast - Swab Laboratory Results 02/24/18 05:25 02/24/18 05:25 02/23/18 02/24/18 02/25/18 05:59 05:59 05:59 Intake Total 1540 900 Output Total 520 1003 Balance 1020 -103 Breast cultures with growth of enterococcus faecalis and lactose fermenting gram -negative lo Blood cultures x2 no growth - Physical Exam General Appearance: alert, no apparent distress EENT: No scleral icterus Cardiac/Chest: other (Erythema present over left breast region with mild warmth and tenderness; central packing in place where nipple previously present; ann marie intact inferiorly; no drainage or areas of tissue necrosis present) Abdomen: non-tender, No distended ICD10 Worksheet Patient Problems: Problems Problem Status Onset Cellulitis Acute
[2018-02-25] MEDS: CEFEPIME HCL 2 GM in NS 100 ML IV SCH ×2 (02:52→10:28)
[2018-02-25] MEDS: oxyCODONE IR 5 MG TAB PO PRN (08:12)
[2018-02-25] MEDS: LETROZOLE 2.5 MG TAB PO SCH (08:13)
[2018-02-25] MEDS: CHOLECALCIFEROL VIT D3 1,000 UNITS TAB PO SCH (08:13)
--- NOTE | 2018-02-25 10:04 | SOAPPROG ---
SOAP Progress Note Assessment/Plan: Assessment: FOLLOW-UP NECROTIC NIPPLE EXCISION WITH REMOVAL OF IMPLANT WOUND IS CLEAN BUT MILDLY ERYTHEMATOUS WHICH MAY BE CHRONIC FROM HER RADIATION THERAPY DRESSING CHANGE TODAY WITH THE WOUND 0 PACKED WITH IODOFORM GAUZE Plan: HOME WHEN OKAYED BY INFECTIOUS DISEASE 02/24/18 14:53 02/25/18 10:03 DOING WELL THIS A.M. WITH DECREASED PAIN/WOUND UNCHANGED/AFEBRILE/VITAL SIGNS STABLE HOME WITH DRESSING CARE WHEN DECISION ON HOME ANTIBIOTICS IS MADE BY ID Objective: Vital Signs Temp Pulse Resp BP Pulse Ox 36.7 C 91 16 125/74 H 95 02/25/18 08:00 02/25/18 08:00 02/25/18 08:00 02/25/18 08:00 02/25/18 08:00 Microbiology 02/22/18 18:56 Gram Stain - Final Breast - Swab 02/22/18 20:48 Mycobacterial Smear (BETZAIDA) - Final Breast - Eswab Mycobacterial Culture - Final 02/22/18 20:48 Gram Stain - Final Breast - Eswab Laboratory Results 02/24/18 05:25 02/25/18 04:00 02/24/18 02/25/18 02/26/18 05:59 05:59 05:59 Intake Total 900 1250 Output Total 1003 Balance -103 1250 ICD10 Worksheet Patient Problems: Problems Problem Status Onset Cellulitis Acute
[2018-02-25] MEDS ORDERED: BISACODYL 10 MG SUPP PR PRN (11:19)
[2018-02-25] MEDS ORDERED: POLYETHYLENE GLYCOL 3350 17 GM PKT PO PRN (11:19)
[2018-02-25] MEDS ORDERED: LACTULOSE 20 GM/30 ML UDCUP PO PRN (11:19)
[2018-02-25] MEDS ORDERED: MAGNESIUM HYDROXIDE 30 ML UDCUP PO PRN (11:19)
[2018-02-25] MEDS: VANCOMYCIN 750 MG in D5W 150 ML IV SCH (11:20)
[2018-02-25] MEDS ORDERED: SENNOSIDES/DOCUSATE SODIUM TAB PO SCH (11:30)
--- NOTE | 2018-02-25 14:01 | PCMIDPN ---
Assessment/Plan: Assessment/Plan: * Left breast infection post reconstruction status post incision and drainage/ resection of necrotic nipple/removal of implant: Culture showing growth of Enterococcus faecalis and Klebsiella oxytoca. Enterococcal isolate is resistant to tetracyclines derivatives. Still with small area of cellulitis around staple line. Will complete additional 4 days of vancomycin on [address] [place] [address] daily combined with oral levofloxacin once daily for a 7 day total course of therapy post debridement and implant removal. Will re-evaluate on [address] [place] [address] on 03/01/2018 to ensure continued clinical improvement. Side effects of fluoroquinolone use including tendinopathy, allergic reactions, skin rash, C difficile colitis, potential drug interactions , and need to avoid concomitant intake of polyvalent cations discussed with patient. 02/25/18 13:57 Subjective: Overall patient feels better. Mild pain around staple line. Objective: Vital Signs Temp Pulse Resp BP Pulse Ox 36.7 C 91 16 125/74 H 93 02/25/18 11:14 02/25/18 11:14 02/25/18 11:14 02/25/18 11:14 02/25/18 11:14 Microbiology 02/22/18 20:48 Gram Stain - Final Breast - Eswab 02/22/18 18:56 Gram Stain - Final Breast - Swab Wound Culture - Final Enterococcus Faecalis Klebsiella Oxytoca 02/22/18 20:48 Mycobacterial Smear (BETZAIDA) - Final Breast - Eswab Mycobacterial Culture - Final Laboratory Results 02/24/18 05:25 02/25/18 04:00 02/24/18 02/25/18 02/26/18 05:59 05:59 05:59 Intake Total 900 1250 Output Total 1003 Balance -103 1250 Vancomycin # 3 Cefepime # 3 Breast cultures E faecalis and Klebsiella oxytoca Blood cultures x2 no growth - Physical Exam General Appearance: alert, no apparent distress EENT: No scleral icterus Cardiac/Chest: other (Left breast with mild erythema around staple line which is blanching in nature; more chronic hyperpigmentation superior to that; packing in place centrally; mild tenderness around staple line) - Time Spent With Patient Time Spent with Patient: greater than 35 minutes Time Spent with Patient: Greater than 35 minutes spent on this patients care, greater than 50% of time spent counseling, educating, and coordinating care regarding the above mentioned plan. ICD10 Worksheet Patient Problems: Problems Problem Status Onset Cellulitis Acute
--- NOTE | 2018-02-25 14:19 | ASMTDCNOTE ---
Case Management Discharge Discharge Order Complete? Answers: No Patient to Obtain Answers: via Family Medications Transportation Arranged Answers: Family/Friends Discharge Comments Notes: CM met with patient prior to discharge, she is scheduled for daily Vancomycin infusions at 11:30. She will be staying with her mom while in town and will follow up with her providers in [place]. Her will be transporting her at discharge. CAGE questionnaire completed. CM available to support if any additional discharge needs arise. Date Signed: 02/25/2018 02:19 PM Electronically Signed By:Yamini Livingston
--- NOTE | 2018-02-25 14:41 | GDS ---
ALL DIAGNOSES: 1. Left breast cellulitis, status post incision and drainage, as well as implant removal. 2. History of breast cancer, status post external radiation therapy, as well as mastectomy and recon struction. 3. History of penicillin allergy with a rash. 4. Hyponatremia. 5. Anemia. 6. Severe sepsis with lactic acidosis, as well as hypotension. HOSPITAL COURSE: This is a 57-year-old female who presented with a left breast infection. She is st atus post mastectomy, XRT, as well as breast reconstruction last summer. She had the area I and D'd, with removal of her implant. Cultures have grown out Enterococcus faecalis, which is resistant to t etracyclines, as well as Klebsiella oxytoca which is susceptible to everything, except for ampicillin . She has been treated with vancomycin, as well as cefepime here. She has been followed by infectious Disease, as well as General Surgery. She will be treated for an additional 4 days of outpatient IV v ancomycin daily, as well as Levaquin. Notably, her infection has markedly improved, though there is still a small area of erythema surrounding the surgical incision. Her vancomycin will be delivered h ere at the outpatient infusion center. She will plan to return to [place] where she permanently resides in about 5 days. She will follow up likely with Dr. Gatica for wound care in the interim period. She was given warnings and side effects of antibiotics. She is, otherwise, discharged in stable condition. BILLING: I spent more than 30 minutes on the day of discharge coordinating care. /[id number]/MODL
--- NOTE | 2018-02-25 15:52 | ASMTCAGE ---
CAGE Do you feel you ought to Answers: Yes cut down on your drinking or drug use? Do people annoy you by Answers: No criticizing your drinking or drug use? Do you feel guilty about Answers: No your drinking or drug use? Do you drink or use drugs Answers: No first thing in the morning (Eye Passenger Screener)? Additional Comments patient states she drinks, no drug use. Date Signed: 02/25/2018 03:51 PM Electronically Signed By:Yamini Livingston
[2018-02-25 15:53] VITALS: BP 136/88
== END 2018-02-25 15:55 | disposition home or self-care (01) | DRG 856 ==
LOC: FOB 22:07 → F3E 02-23 16:39
PROVIDERS: ADMIT Internal Medicine; ATTEND Student in an Organized Health Care Education/Training Program
PROC: 0HPU0JZ Removal of Synthetic Substitute from Left Breast, Open Approach (ICD-10-PCS; principal; 2018-02-22 20:00)
PROC: 0J960ZZ Drainage of Chest Subcutaneous Tissue and Fascia, Open Approach (ICD-10-PCS; principal; 2018-02-22 20:00)
PROC: 0HB5XZZ Excision of Chest Skin, External Approach (ICD-10-PCS; principal; 2018-02-22 20:00)
PROC: 02H633Z Insertion of Infusion Device into Right Atrium, Percutaneous Approach (ICD-10-PCS; 2018-02-23)
DX: T81.44XA Sepsis following a procedure, initial encounter (principal); T85.79XA Infection and inflammatory reaction due to other internal prosthetic devices, implants and grafts, initial encounter; L03.313 Cellulitis of chest wall; L02.213 Cutaneous abscess of chest wall; I96 Gangrene, not elsewhere classified; R65.20 Severe sepsis without septic shock; B95.2 Enterococcus as the cause of diseases classified elsewhere; B96.1 Klebsiella pneumoniae [K. pneumoniae] as the cause of diseases classified elsewhere; E87.2 Acidosis; Z85.3 Personal history of malignant neoplasm of breast; Z90.12 Acquired absence of left breast and nipple; Z92.3 Personal history of irradiation; Z98.82 Breast implant status; E87.1 Hypo-osmolality and hyponatremia; D64.9 Anemia, unspecified; Z88.0 Allergy status to penicillin; F17.210 Nicotine dependence, cigarettes, uncomplicated
CPT/HCPCS: 96365; C1751; J0690; J0692; J2250; J2405; J2704; J3010; J3370